=== PATIENT | male | born 1975 | race Two or more races ===

== ENCOUNTER 2025-01-21 21:15 | Emergency (ER) | payer OTHER ==
[~2025-01-21] VITALS: Ht 177.8 cm; Wt 88.5 kg
[2025-01-21] MEDS ORDERED: SIMVASTATIN5 MG (21:25)
[2025-01-21 22:09] LABS: BASO % 0.5 % (0.1-1.2); EOS # 0.48 (0.04-0.54); EOS % 5.0 % (0.7-7.0); LYMPH # 2.15 (1.18-3.74); LYMPH % 22.3 % (19.3-53.1); MEAN PLATELET VOLUME 9.60 fl (9.4-12.4); MONO # 0.81 (0.24-0.82); MONO % 8.4 % (4.7-12.5); NEUT # 6.11 (1.56-6.13); NEUT % 63.5 % (34.0-71.1); RED CELL DISTRIBUTION WIDTH 12.2 % (11.6-14.4)
[2025-01-21 22:37] LABS: ALT/SGPT 32.0 U/L (12-78); AST/SGOT 18.0 U/L (15-37); BILIRUBIN TOTAL 0.32 mg/dL (0.3-1.2); BUN CREA RATIO 13.0 (7.0-25.0); CREATININE SERUM 1.2 mg/dL (0.70-1.30); GFR 64.9; GLOBULINA 3.1 G/DL (2.4-3.5); GLUCOSE FASTING 108.0 mg/dL (65-100); LDH 132.0 U/L (87-241); OSMOLALITY SERUM 283.0 MOSM/KG (275-295); PHOSPHOKINASE CREATININE 163.0 U/L (39-308)
== END 2025-01-21 23:13 | disposition home or self-care (01) ==
LOC: ER 21:15
PROVIDERS: General Practice
DX: R53.1 Weakness (principal); E78.00 Pure hypercholesterolemia, unspecified